=== PATIENT | male | born 1980 | race African-American/Black ===

== ENCOUNTER 2016-12-22 14:06 | Emergency (ER) | payer MEDICAID ==
[~2016-12-22] VITALS: Ht 177.8 cm; Wt 72.6 kg
[2016-12-22 14:21] VITALS: BP 134/95
== END 2016-12-22 14:23 | disposition home or self-care (01) ==
LOC: ER 14:06
DX: S60.512A Abrasion of left hand, initial encounter (principal); S60.511A Abrasion of right hand, initial encounter; F20.9 Schizophrenia, unspecified; E11.9 Type 2 diabetes mellitus without complications; Z86.14 Personal history of Methicillin resistant Staphylococcus aureus infection; X58.XXXA Exposure to other specified factors, initial encounter; Y93.89 Activity, other specified; Y99.8 Other external cause status; Y92.89 Other specified places as the place of occurrence of the external cause